=== PATIENT | male | born 1970 | race Hispanic/Latino ===

== ENCOUNTER 2020-04-16 12:36 | Emergency (ER) | payer OTHER ==
[2020-04-17 12:22] LABS: SARS-CoV-2 MS2 Positive; SARS-CoV-2 N Gene Positive; SARS-CoV-2 S Gene Positive; SARS-CoV-2 orf1ab Positive
--- NOTE | 2020-04-19 07:18 | RAD ---
EXAM: Single view of the chest HISTORY: Chest pain and shortness of breath COMPARISON: 01/01/2017 FINDINGS: Single view of the chest shows a normal sized cardiomediastinal silhouette. There are multi focal scattered opacities in the lungs, right greater than left. The bones are unremarkable IMPRESSION: Multifocal pneumonia
== END 2020-04-16 14:48 | disposition home or self-care (01) ==
LOC: ERS 12:36
DX: U07.1 COVID-19 (principal); J12.89 Other viral pneumonia; E11.9 Type 2 diabetes mellitus without complications
CPT/HCPCS: 71045; 87635; 99285; U0003

== ENCOUNTER 2020-04-19 03:40 | Emergency (ER) | payer OTHER ==
--- NOTE | 2020-04-19 07:45 | RAD ---
EXAM: Single view of the chest HISTORY: Shortness of breath and cough COMPARISON: 04/16/2020 FINDINGS: Single view of the chest shows a normal sized cardiomediastinal silhouette. Multifocal infi ltrates are again seen in the lungs, right greater than left. The bones are unremarkable IMPRESSION: Multifocal pneumonia
== END 2020-04-19 04:47 | disposition home or self-care (01) ==
LOC: ERS 03:40
DX: U07.1 COVID-19 (principal); E11.9 Type 2 diabetes mellitus without complications; Z79.84 Long term (current) use of oral hypoglycemic drugs
CPT/HCPCS: 71045; 93005

== ENCOUNTER 2020-05-03 11:46 | Emergency (ER) | payer OTHER ==
[2020-05-04 13:13] LABS: SARS-CoV-2 MS2 Positive; SARS-CoV-2 N Gene Negative; SARS-CoV-2 S Gene Negative; SARS-CoV-2 by NAA Not Detected (NotDetected); SARS-CoV-2 orf1ab Negative
== END 2020-05-03 12:36 | disposition home or self-care (01) ==
LOC: ERS 11:46
DX: Z09 Encounter for follow-up examination after completed treatment for conditions other than malignant neoplasm (principal); Z86.19 Personal history of other infectious and parasitic diseases; E78.5 Hyperlipidemia, unspecified; E78.00 Pure hypercholesterolemia, unspecified; E11.9 Type 2 diabetes mellitus without complications
CPT/HCPCS: 87635; 99283; U0003

== ENCOUNTER 2022-10-28 14:31 | Inpatient (IN) | payer SELFPAY ==
[~2022-10-28 14:31] MED LIST: Iopamidol 370 76% 100 ML VIAL ONE
[2022-10-28] MEDS ORDERED: Ondansetron PF 4 MG/2 ML Vial ONE (15:35)
[2022-10-28 15:42] LABS: #Lymphocytes 1.5 thou/uL (1.20-3.40); #Monocytes 0.5 thou/uL (0.11-0.59); #Neutrophils 6.6 thou/uL (1.40-6.50); %Basophils 0.2 % (0.0-1.0); %Eosinophils 0.2 % (0.0-10.0); %Lymphocytes 17.7 % (21.0-51.0); %Monocytes 5.7 % (0.0-10.0); %Neutrophils 76.3 % (42.0-75.0); Hemoglobin 14.2 g/dL (14.0-18.0); Mean Corpuscular Hemoglobin 29.9 pg (27.0-31.0); Mean Corpuscular Volume 85.5 fl (78.0-98.0); Mean Platelet Volume 7.6 fL (7.4-10.4); Platelet Count 344 10x3/uL (130-400); RBC Distribution Width 12.1 % (11.5-14.5); Red Blood Cell (RBC) Count 4.74 mill/uL (4.70-6.10); White Blood Cell (WBC) Count 8.7 10x3/uL (4.8-10.8)
[2022-10-28 16:04] LABS: ALT (SGPT) 13 U/L (8-55); AST (SGOT) 13 U/L (5-34); Albumin 4.2 g/dL (3.5-5.0); Alkaline Phosphatase 80 U/L (40-110); Anion Gap 16 mmol/L (10-20); BUN (Urea Nitrogen) 13 mg/dL (8.4-25.7); Bilirubin, Total 0.7 mg/dL (0.2-1.2); Calc. Creatinine Clearance 0 mL/min (70-130); Calcium 9.8 mg/dL (7.8-10.44); Carbon Dioxide 22 mmol/L (22-29); Chloride 101 mmol/L (98-107); Estimated GFR 115; Globulin 3.4 g/dL (2.4-3.5); Glucose 162 mg/dL (70-105); Lipase 26 U/L (8-78); Protein, Total 7.6 g/dL (6.0-8.3); Sodium 135 mmol/L (136-145)
[2022-10-28 17:14] LABS: Bacteria/HPF None Seen HPF (None Seen); Bilirubin Negative (Negative); Blood, Urine Negative (Negative); Clarity Clear (Clear); Glucose, Urine (Dipstick) 200 mg/dL (Negative); Ketone, Urine Negative (Negative); Leukocyte 25 Leu/uL (Negative); Nitrite Negative (Negative); Protein, Urine (Dipstick) 70 mg/dL (Neg-Trace); RBC/HPF 0-3 HPF (0-3); Specific Gravity, Urine 1.025 (1.002-1.036); Urobilinogen 3 mg/dL (Less than 2)
[2022-10-28] MEDS ORDERED: Morphine 4 MG/ML VIAL SLOW IVP PRN (18:30)
[2022-10-28] MEDS ORDERED: Dextrose 50% Abboject 50 ML SYRINGE SLOW IVP PRN (18:30)
[2022-10-28] MEDS ORDERED: TETANUS, DIPHTHERIA TOX,ADULT (TDVAX) 0.5 ML VIAL IM ONE (18:30)
[2022-10-28] MEDS ORDERED: Dextrose 5% in Water 1,000 ML IV PRN (18:30)
[2022-10-28] MEDS ORDERED: Ondansetron PF 4 MG/2 ML Vial IVP PRN (18:30)
[2022-10-28] MEDS ORDERED: Ketorolac Tromethamine 30 MG/ML VIAL IVP SCH (18:45)
[2022-10-28 22:16] VITALS: BMI 20.5
[2022-10-28] MEDS: Lactated Ringer's 1,000 ML IV SCH (22:20)
[2022-10-28] MEDS: Famotidine/PF 20 mg/2ml Vial SLOW IVP SCH (22:20)
[2022-10-29] MEDS: Lactated Ringer's 1,000 ML IV SCH ×2 (03:55→05:21)
[2022-10-29] MEDS: Ketorolac Tromethamine 30 MG/ML VIAL IVP PRN ×2 (05:25→21:18)
[2022-10-29 06:26] LABS: #Lymphocytes 1.4 thou/uL (1.20-3.40); #Monocytes 0.5 thou/uL (0.11-0.59); #Neutrophils 5.3 thou/uL (1.40-6.50); %Basophils 0.3 % (0.0-1.0); %Eosinophils 0.4 % (0.0-10.0); %Lymphocytes 19.2 % (21.0-51.0); %Monocytes 7.4 % (0.0-10.0); %Neutrophils 72.7 % (42.0-75.0); Hemoglobin 12.3 g/dL (14.0-18.0); Mean Corpuscular HGB CONC 33.7 g/dL (32.0-36.0); Mean Corpuscular Hemoglobin 29.1 pg (27.0-31.0); Mean Corpuscular Volume 86.3 fl (78.0-98.0); Mean Platelet Volume 7.5 fL (7.4-10.4); Platelet Count 292 10x3/uL (130-400); RBC Distribution Width 12.1 % (11.5-14.5); Red Blood Cell (RBC) Count 4.23 mill/uL (4.70-6.10); White Blood Cell (WBC) Count 7.3 10x3/uL (4.8-10.8)
[2022-10-29 06:34] LABS: Hemoglobin A1c 12.9 % (4.0-6.0)
[2022-10-29 06:48] LABS: ALT (SGPT) 9 U/L (8-55); AST (SGOT) 10 U/L (5-34); Albumin 3.5 g/dL (3.5-5.0); Alkaline Phosphatase 65 U/L (40-110); Anion Gap 11 mmol/L (10-20); BUN (Urea Nitrogen) 15 mg/dL (8.4-25.7); Bilirubin, Total 0.5 mg/dL (0.2-1.2); Calc. Creatinine Clearance 103 mL/min (70-130); Calcium 8.7 mg/dL (7.8-10.44); Carbon Dioxide 26 mmol/L (22-29); Chloride 107 mmol/L (98-107); Estimated GFR 117; Globulin 2.6 g/dL (2.4-3.5); Glucose 89 mg/dL (70-105); Potassium 3.8 mmol/L (3.5-5.1); Protein, Total 6.1 g/dL (6.0-8.3); Sodium 140 mmol/L (136-145)
[2022-10-29] MEDS: Famotidine/PF 20 mg/2ml Vial SLOW IVP SCH (09:53)
[2022-10-29] MEDS ORDERED: HumaLOG 300 UNITS/3 ML VIAL SC PRN (10:48)
[2022-10-29] MEDS ORDERED: Dextrose 50% Abboject 50 ML SYRINGE SLOW IVP PRN (10:48)
[2022-10-29] MEDS ORDERED: Dextrose 5% in Water 1,000 ML IV PRN (10:48)
[2022-10-29] MEDS ORDERED: Polyethylene Glycol 3350 17 GM Packet PO PRN (10:50)
[2022-10-29] MEDS: HumaLOG 300 UNITS/3 ML VIAL SC PRN (12:56)
[2022-10-29] MEDS ORDERED: MD-Gastroview 120 ML BOT ONE (13:19)
[2022-10-29] MEDS: glyBURIDE 5 MG TAB PO SCH (18:03)
[2022-10-29] MEDS: metFORMIN 500 MG TAB PO SCH (21:18)
[2022-10-30] MEDS: Sodium Chloride 0.9% 1,000 ML IV SCH ×2 (05:19→16:21)
[2022-10-30] MEDS ORDERED: Ibuprofen 600 MG TAB PO PRN (07:42)
[2022-10-30] MEDS ORDERED: traMADol HCl 50 MG TAB PO PRN (07:42)
[2022-10-30] MEDS ORDERED: Acetaminophen 500 MG TAB PO SCH (08:00)
[2022-10-30] MEDS ORDERED: Bupivacaine HCl 0.5%/Epinephrine 1:200,000/PF 30 ml Vial ONE (08:33)
[2022-10-30] MEDS ORDERED: Fentanyl 250 MCG/5 ML VIAL ONE (08:36)
[2022-10-30] MEDS ORDERED: Acetaminophen 500 MG TAB ONE (08:49)
[2022-10-30] MEDS ORDERED: Levofloxacin 500 mg/D5W 100 ml Premix Bag ONE (08:52)
[2022-10-30] MEDS ORDERED: Polyethylene Glycol 3350 17 GM Packet PO SCH (09:00)
[2022-10-30] MEDS ORDERED: PHENYLEPHRINE-NS 100 MCG/ML 10 ML SYRINGE ONE (09:01)
[2022-10-30] MEDS ORDERED: Dexamethasone 20 MG/5 ML VIAL ONE (09:01)
[2022-10-30] MEDS ORDERED: Lidocaine 1% PF 5 ML VIAL ONE (09:01)
[2022-10-30] MEDS ORDERED: PROPOFOL 200 MG/20 ML VIAL ONE (09:01)
[2022-10-30] MEDS ORDERED: Rocuronium Bromide 10 MG/ML (10ML VIAL) ONE (09:01)
[2022-10-30] MEDS ORDERED: Ondansetron PF 4 MG/2 ML Vial ONE (09:01)
[2022-10-30] MEDS ORDERED: SUGAMMADEX SODIUM 200 MG/2 ML VIAL ONE (09:40)
[2022-10-30] MEDS ORDERED: Promethazine HCl 25 MG/ML VIAL IM PRN (10:06)
[2022-10-30] MEDS ORDERED: Ondansetron HCl/PF 4 MG/2 ML Vial IVP PRN (10:06)
[2022-10-30] MEDS ORDERED: Ketorolac Tromethamine 30 MG/ML VIAL IVP PRN (10:06)
[2022-10-30] MEDS ORDERED: Ipratropium/Albuterol 3 ML NEB ONE (10:07)
[2022-10-30] MEDS ORDERED: Fentanyl 100 MCG/2 ML VIAL ONE (10:08)
[2022-10-30] MEDS ORDERED: Ketorolac Tromethamine 30 MG/ML VIAL ONE (10:15)
[2022-10-30] MEDS: glyBURIDE 5 MG TAB PO SCH ×2 (12:15→16:21)
[2022-10-30] MEDS: metFORMIN 500 MG TAB PO SCH (12:16)
[2022-10-30] MEDS: HumaLOG 300 UNITS/3 ML VIAL SC PRN ×2 (12:46→16:22)
[2022-10-30] MEDS ORDERED: Acetaminophen 500 MG TAB PO PRN (14:00)
[2022-10-30 15:22] LABS: #Lymphocytes 0.4 thou/uL (1.20-3.40); #Monocytes 0.1 thou/uL (0.11-0.59); #Neutrophils 6.6 thou/uL (1.40-6.50); %Basophils 0.1 % (0.0-1.0); %Eosinophils 0.3 % (0.0-10.0); %Lymphocytes 5.3 % (21.0-51.0); %Monocytes 0.8 % (0.0-10.0); %Neutrophils 93.5 % (42.0-75.0); Mean Corpuscular HGB CONC 34.6 g/dL (32.0-36.0); Mean Corpuscular Hemoglobin 29.9 pg (27.0-31.0); Mean Corpuscular Volume 86.4 fl (78.0-98.0); Mean Platelet Volume 7.4 fL (7.4-10.4); Platelet Count 267 10x3/uL (130-400); RBC Distribution Width 11.9 % (11.5-14.5); Red Blood Cell (RBC) Count 3.69 mill/uL (4.70-6.10)
[2022-10-30 15:45] LABS: Anion Gap 12 mmol/L (10-20); BUN (Urea Nitrogen) 19 mg/dL (8.4-25.7); Calc. Creatinine Clearance 92 mL/min (70-130); Calcium 7.9 mg/dL (7.8-10.44); Carbon Dioxide 21 mmol/L (22-29); Chloride 109 mmol/L (98-107); Estimated GFR 114; Glucose 285 mg/dL (70-105); Sodium 138 mmol/L (136-145)
[2022-10-30 16:42] VITALS: BP 97/59; TEMP 98.3
== END 2022-10-30 18:01 | disposition home or self-care (01) | DRG 418 ==
LOC: ERS 14:31 → T4-B 18:36
PROVIDERS: ADMIT Specialist; ATTEND Hospitalist
PROC: 0D9670Z Drainage of Stomach with Drainage Device, Via Natural or Artificial Opening (ICD-10-PCS; 2022-10-28)
PROC: 0FT44ZZ Resection of Gallbladder, Percutaneous Endoscopic Approach (ICD-10-PCS; principal; 2022-10-30)
DX: K80.10 Calculus of gallbladder with chronic cholecystitis without obstruction (principal); K56.600 Partial intestinal obstruction, unspecified as to cause; K59.00 Constipation, unspecified; E11.9 Type 2 diabetes mellitus without complications; Z79.899 Other long term (current) drug therapy; Z79.84 Long term (current) use of oral hypoglycemic drugs; Z79.4 Long term (current) use of insulin
CPT/HCPCS: 36415; 36416; 74019; 74177; 74250; 76705; 80048; 80053; 81003; 81015; 83036; 83605; 83690; 85025; 87086; 88304; 96374; C1889; J1100; J1650; J1885; J1956; J2405; J2704; J3010; J7050; J7120; J7620; Q9963; Q9967; S0028; U0003; U0005